=== PATIENT | female | born 1955 | race Caucasian/White ===

== ENCOUNTER → 2018-01-31 | Outpatient (CLI) | payer BC, MEDICARE ==
[~2018-01-31] MED LIST: ASPI-1012 PO; ATOR20TA65 PO; ENTE0.5T4 PO; ISOVUE-370 50ML VIAL IV ONE; MYCO500T PO; SLOMG PO; TACR1CAP10 PO
== END | disposition home or self-care (01) ==
LOC: RAH 11:18
PROVIDERS: ATTEND Family Medicine
DX: H53.2 Diplopia (principal); R41.0 Disorientation, unspecified; R47.01 Aphasia
CPT/HCPCS: 70470; Q9967

== ENCOUNTER 2018-02-04 13:48 | Inpatient (IN) | payer BC, MEDICARE ==
[~2018-02-04] VITALS: Ht 167.6 cm; Wt 62.8 kg
[2018-02-04 14:52] LABS: BASOPHILS % (AUTO) 0.6 % (0.0-5.0); EOSINOPHILS % (AUTO) 1.8 % (0.0-8.0); HEMATOCRIT 37.9 % (36-48); LYMPHOCYTES % (AUTO) 26.5 % (21.0-51.0); MEAN CORPUSCULAR HEMOGLOBIN 29.9 pg (27.0-33.0); MEAN CORPUSCULAR HGB CONC 34.7 g/dL (32.0-36.0); MEAN CORPUSCULAR VOLUME 86.1 fL (79-99); NEUTROPHILS % (AUTO) 61.1 % (40.0-77.0); NUCLEATED RED BLOOD CELLS 0.1 % (0.0-0.19); PLATELET COUNT (AUTO) 134 K/uL (130-400); RED CELL DISTRIBUTION WIDTH 14.4 % (11.0-15.5); WHITE BLOOD COUNT (AUTO) 2.3 K/uL (4.8-10.8)
[2018-02-04 15:02] LABS: CREATININE 1.1 mg/dL (0.5-1.5); POTASSIUM 4.3 mmol/L (3.5-5.1)
[2018-02-04 15:03] LABS: INR 0.95 (0.85-1.15); PARTIAL THROMBOPLASTIN TIME 27.2 SEC (26.3-35.5)
[2018-02-04 15:08] LABS: ALBUMIN 4.8 g/dL (3.5-5.0); BILIRUBIN,TOTAL 0.4 mg/dL (0.2-1.0); TOTAL PROTEIN, SERUM 8.2 g/dL (6.0-8.3)
[2018-02-04 15:20] LABS: EOSINOPHILS % (MANUAL) 4 % (1-6); LYMPHOCYTES % (MANUAL) 16 % (22-44); MONOCYTES % (MANUAL) 4 % (2-9); REACTIVE LYMPHOCYTES 4 % (0-0); SEGMENTED NEUTROPHILS % 72 % (40-70)
[2018-02-04 15:22] LABS: PLATELET MORPHOLOGY COMMENT ADEQUATE
[2018-02-04] MEDS ORDERED: ASPIRIN 325 MG TABLET ONE (22:55)
[2018-02-05] VITALS (7 sets, daily range): BP systolic 115–170; BP diastolic 51–89
[2018-02-05] MEDS ORDERED: ENTE0.5T4 PO (00:53)
[2018-02-05] MEDS ORDERED: MYCO500T PO (00:53)
[2018-02-05] MEDS ORDERED: TACR1CAP10 PO (00:53)
[2018-02-05] MEDS ORDERED: SLOMG PO (00:53)
[2018-02-05] MEDS ORDERED: SODIUM CHLORIDE 0.9% 1000ML 1,000 ML IV SCH (01:45)
[2018-02-05] MEDS ORDERED: PHARMACY COMMUNICATION MISC SCH (02:00)
[2018-02-05] MEDS: ENTECAVIR 0.5 MG PO SCH (09:00)
[2018-02-05] MEDS: TACROLIMUS 1 MG CAPSULE PO SCH ×2 (09:00→20:06)
[2018-02-05] MEDS: MYCOPHENOLATE MOFETIL 250 MG CAPSULE PO SCH ×2 (09:00→20:06)
[2018-02-05] MEDS: MAGNESIUM CHLORIDE 70 MG TABLET.SA PO SCH ×2 (09:00→20:06)
[2018-02-05] MEDS: ASPIRIN 325MG EC TAB 325 MG TABLET.DR PO SCH (09:04)
[2018-02-05] MEDS ORDERED: HYDRALAZINE HCL 20 MG/ML VIAL IV PRN (12:45)
[2018-02-05 16:51] LABS: APPEARANCE,URINE Clear (CLEAR); BILIRUBIN,URINE Negative (NEGATIVE); COLOR,URINE Yellow (YELLOW); GLUCOSE, URINE (UA) Negative (NEGATIVE); KETONES,URINE Negative (NEGATIVE); LEUKOCYTE ESTERASE ,URINE Moderate (NEGATIVE); NITRATE,URINE Negative (NEGATIVE); OCCULT BLOOD,URINE Negative (NEGATIVE); PROTEIN,URINE Negative (NEGATIVE); UROBILINOGEN,URINE 0.2 mg/dL (0.2-1.0)
[2018-02-05 17:00] LABS: RBC,URINE None Seen /HPF (0-1)
[2018-02-05 17:01] LABS: BACTERIA,URINE Few /HPF (None Seen); SQUAMOUS EPITHELIAL CELL,UR 0-2 /HPF (0-2); WBC,URINE 0-1 /HPF (0-1)
[2018-02-05] MEDS ORDERED: ONDANSETRON HCL MDV 20ML 2 MG/ML VIAL ONE (18:05)
[2018-02-05] MEDS ORDERED: ONDANSETRON HCL MDV 20ML 2 MG/ML VIAL IVP PRN (18:15)
[2018-02-05] MEDS: ATORVASTATIN CALCIUM 20 MG TABLET PO SCH (20:06)
[2018-02-06 04:12] VITALS: BP 129/77
[2018-02-06 04:31] LABS: HEMATOCRIT 35.2 % (36-48); MEAN CORPUSCULAR HGB CONC 34.7 g/dL (32.0-36.0); MEAN CORPUSCULAR VOLUME 86.6 fL (79-99); NUCLEATED RED BLOOD CELLS 0.1 % (0.0-0.19); PLATELET COUNT (AUTO) 117 K/uL (130-400); RED BLOOD CELL COUNT(AUTO) 4.06 MIL/uL (4.00-5.50); RED CELL DISTRIBUTION WIDTH 13.9 % (11.0-15.5); WHITE BLOOD COUNT (AUTO) 1.9 K/uL (4.8-10.8)
[2018-02-06 05:00] LABS: ALBUMIN 4.1 g/dL (3.5-5.0); BILIRUBIN,TOTAL 0.5 mg/dL (0.2-1.0); MAGNESIUM 1.8 mg/dL (1.80-2.40); POTASSIUM 4.4 mmol/L (3.5-5.1); TOTAL PROTEIN, SERUM 7.2 g/dL (6.0-8.3)
[2018-02-06 05:38] LABS: BAND NEUTROPHILS % (MANUAL) 1 % (0-2); EOSINOPHILS % (MANUAL) 3 % (1-6); LYMPHOCYTES % (MANUAL) 25 % (22-44); MAN.DIFF COMMENT-IMPRESSION MANUAL DIFFERENTIAL; MONOCYTES % (MANUAL) 9 % (2-9); REACTIVE LYMPHOCYTES 4 % (0-0); SEGMENTED NEUTROPHILS % 58 % (40-70)
[2018-02-06 05:39] LABS: PLATELET MORPHOLOGY COMMENT SLIGHTLY DECREASED
[2018-02-06 07:00] VITALS: BP 144/84
[2018-02-06] MEDS: MYCOPHENOLATE MOFETIL 250 MG CAPSULE PO SCH ×2 (08:42→20:42)
[2018-02-06] MEDS: TACROLIMUS 1 MG CAPSULE PO SCH ×2 (08:42→20:42)
[2018-02-06] MEDS: MAGNESIUM CHLORIDE 70 MG TABLET.SA PO SCH ×2 (08:42→20:42)
[2018-02-06] MEDS ORDERED: ENTE0.5T4 PO (08:44)
[2018-02-06] MEDS: ENTECAVIR 0.5 MG PO SCH ×2 (08:45→20:48)
[2018-02-06] MEDS: ASPIRIN 325MG EC TAB 325 MG TABLET.DR PO SCH (09:15)
[2018-02-06 11:00] VITALS: BP 131/78
[2018-02-06] MEDS ORDERED: TBO-FILGRASTIM 480 MCG/0.8 ML ML SQ SCH (11:30)
[2018-02-06 16:00] VITALS: BP 120/52
[2018-02-06 19:28] VITALS: BP 159/87
[2018-02-06] MEDS: ATORVASTATIN CALCIUM 20 MG TABLET PO SCH (20:42)
[2018-02-06] MEDS ORDERED: ENTECAVIR 0.5 MG PO SCH (21:00)
[2018-02-06 23:34] VITALS: BP 113/70
[2018-02-07 04:04] VITALS: BP 146/63
[2018-02-07 04:08] LABS: HEMATOCRIT 36.3 % (36-48); MEAN CORPUSCULAR HEMOGLOBIN 31.3 pg (27.0-33.0); MEAN CORPUSCULAR HGB CONC 36.2 g/dL (32.0-36.0); MEAN CORPUSCULAR VOLUME 86.4 fL (79-99); NUCLEATED RED BLOOD CELLS 0.1 % (0.0-0.19); PLATELET COUNT (AUTO) 114 K/uL (130-400); WHITE BLOOD COUNT (AUTO) 3.1 K/uL (4.8-10.8)
[2018-02-07 04:19] LABS: POTASSIUM 4.4 mmol/L (3.5-5.1)
[2018-02-07 05:18] LABS: BAND NEUTROPHILS % (MANUAL) 7 % (0-2); EOSINOPHILS % (MANUAL) 2 % (1-6); LYMPHOCYTES % (MANUAL) 18 % (22-44); MONOCYTES % (MANUAL) 22 % (2-9); SEGMENTED NEUTROPHILS % 51 % (40-70)
[2018-02-07 05:19] LABS: MAN.DIFF COMMENT-IMPRESSION MANUAL DIFFERENTIAL
[2018-02-07 05:20] LABS: PLATELET MORPHOLOGY COMMENT SLIGHTLY D
[2018-02-07 07:07] VITALS: BP 122/71
[2018-02-07] MEDS: MYCOPHENOLATE MOFETIL 250 MG CAPSULE PO SCH ×2 (09:00→21:06)
[2018-02-07] MEDS: TACROLIMUS 1 MG CAPSULE PO SCH ×2 (09:00→21:06)
[2018-02-07] MEDS: MAGNESIUM CHLORIDE 70 MG TABLET.SA PO SCH ×2 (09:00→21:06)
[2018-02-07] MEDS: ASPIRIN 325MG EC TAB 325 MG TABLET.DR PO SCH (09:00)
[2018-02-07 11:25] VITALS: BP 109/67
[2018-02-07 16:20] VITALS: BP 124/71
[2018-02-07 20:08] VITALS: BP 97/55
[2018-02-07] MEDS: ENTECAVIR 0.5 MG PO SCH (21:00)
[2018-02-07] MEDS: ATORVASTATIN CALCIUM 20 MG TABLET PO SCH (21:06)
[2018-02-07 23:56] VITALS: BP 117/68
[2018-02-08 03:56] LABS: BASOPHILS % (AUTO) 0.7 % (0.0-5.0); EOSINOPHILS % (AUTO) 2.1 % (0.0-8.0); LYMPHOCYTES % (AUTO) 22.9 % (21.0-51.0); MEAN CORPUSCULAR HEMOGLOBIN 29.9 pg (27.0-33.0); MEAN CORPUSCULAR HGB CONC 34.7 g/dL (32.0-36.0); MEAN CORPUSCULAR VOLUME 86.1 fL (79-99); NEUTROPHILS % (AUTO) 59.3 % (40.0-77.0); NUCLEATED RED BLOOD CELLS 0.2 % (0.0-0.19); PLATELET COUNT (AUTO) 108 K/uL (130-400); RED BLOOD CELL COUNT(AUTO) 4.18 MIL/uL (4.00-5.50); WHITE BLOOD COUNT (AUTO) 3.6 K/uL (4.8-10.8)
[2018-02-08 04:09] LABS: POTASSIUM 3.9 mmol/L (3.5-5.1)
[2018-02-08 04:59] VITALS: BP 123/59
[2018-02-08 07:21] VITALS: BP 124/77
[2018-02-08 09:19] LABS: HEPATITIS A ANTIBODY IGM Negative (Negative); HEPATITIS B CORE IGM Negative (Negative); HEPATITIS Bs ANTIGEN SCREEN P Negative (Negative)
[2018-02-08] MEDS: TACROLIMUS 1 MG CAPSULE PO SCH (09:25)
[2018-02-08] MEDS: MAGNESIUM CHLORIDE 70 MG TABLET.SA PO SCH (09:25)
[2018-02-08] MEDS: MYCOPHENOLATE MOFETIL 250 MG CAPSULE PO SCH (09:25)
[2018-02-08] MEDS: ASPIRIN 325MG EC TAB 325 MG TABLET.DR PO SCH (09:25)
[2018-02-08 10:54] VITALS: BP 117/59
[2018-02-08] MEDS ORDERED: ASPI-1012 PO (15:14)
[2018-02-08] MEDS ORDERED: ATOR20TA65 PO (15:18)
[2018-02-09] MEDS ORDERED: FOLIC ACID 1 MG TABLET PO SCH (09:00)
[2018-02-09] MEDS ORDERED: CYANOCOBALAMIN (VITAMIN B-12) 100 MCG TABLET PO SCH (09:00)
== END 2018-02-08 16:06 | disposition home or self-care (01) | DRG 65 ==
LOC: EDH 13:48 → EDHIP 17:40 → 2AH 21:02 → EDHIP 22:07 → 2AH 23:50
PROVIDERS: ADMIT Family Medicine; ATTEND Family Medicine
DX: I63.9 Cerebral infarction, unspecified (principal); Z94.0 Kidney transplant status; D61.818 Other pancytopenia; Z94.4 Liver transplant status; D69.59 Other secondary thrombocytopenia; F80.2 Mixed receptive-expressive language disorder; I10 Essential (primary) hypertension; F41.9 Anxiety disorder, unspecified; K74.60 Unspecified cirrhosis of liver; N28.9 Disorder of kidney and ureter, unspecified; Z87.891 Personal history of nicotine dependence; Z99.2 Dependence on renal dialysis; Z86.19 Personal history of other infectious and parasitic diseases
CPT/HCPCS: 36415; 70450; 70544; 70547; 70551; 80048; 80053; 80061; 80074; 80197; 81001; 82140; 83735; 84439; 84443; 84484; 85025; 85610; 85730; 86038; 86160; 92507; 92522; 92610; 93005; 93306; J7030; J7507; J7517